=== PATIENT | male | born 1950 | race Caucasian/White ===

== ENCOUNTER 2017-03-15 08:46 | Emergency (ER) | payer BC, OTHER ==
[2017-03-15] MEDS: DIPHENHYDRAMINE 50 MG INJ IV (10:20)
[2017-03-15] MEDS: SOD CHLORIDE 0.9% 1,000 ML IV (10:20)
[2017-03-15] MEDS: PROCHLORPERAZINE 10 MG INJ IV (10:26)
[2017-03-15 10:40] LABS: URINE BLOOD (Dip) POC 1+ (NEGATIVE); URINE GLUCOSE (Dip) POC Negative (NEGATIVE); URINE KETONES (Dip) POC 2+ (NEGATIVE); URINE LEUKOCYTE EST (Dip) POC Negative (NEGATIVE); URINE NITRITE (Dip) POC Negative (NEGATIVE); URINE TOTAL PROTEIN POC 1+ (NEGATIVE)
[2017-03-15] MEDS: ONDANSETRON 4 MG INJ IV ×2 (11:25→11:28)
[2017-03-15] MEDS: morphine 4 MG/ML VIAL IV (11:25)
== END 2017-03-15 12:18 | disposition home or self-care (01) ==
LOC: FTE 08:46
DX: R51 Headache (principal); M79.1 Myalgia; B34.9 Viral infection, unspecified
CPT/HCPCS: 81003; 96374; 96375; 99284-25

== ENCOUNTER 2017-03-25 16:33 | Inpatient (IN) | payer BC ==
[2017-03-25] MEDS: ACETAMINOPHEN 325 MG TAB PO (17:19)
[2017-03-25 17:51] LABS: ADD MAN DIFF? NO
[2017-03-25 17:53] LABS: WHITE BLOOD COUNT 14.3 10^3/ul (4.8-10.8)
[2017-03-25 17:53] LABS: BASOPHILS % 0.2 % (0.0-2.0); EOSINOPHILS % 0.2 % (0.0-7.0); HEMATOCRIT 41.1 % (42.0-52.0); HEMOGLOBIN 14.3 g/dl (14.0-18.0); LYMPHOCYTES # 0.6 10^3/ul (0.8-2.9); LYMPHOCYTES % 4.3 % (15.0-51.0); MEAN CORPUSCULAR HEMOGLOBIN 31.4 pg (29.0-33.0); MEAN CORPUSCULAR HGB CONC 34.8 g/dl (32.0-37.0); MEAN CORPUSCULAR VOLUME 90.3 fl (82.0-101.0); MONOCYTE # 0.5 10^3/ul (0.3-0.9); MONOCYTES % 3.4 % (0.0-11.0); NEUTROPHILS % 91.4 % (39.0-77.0); PLATELET COUNT 248 10^3/UL (140-415); RED BLOOD COUNT 4.55 10^6/ul (4.70-6.10); RED CELL DISTRIBUTION WIDTH 12.9 % (11.5-14.5)
[2017-03-25] MEDS: SODIUM CHLORIDE 0.9% 1L BAG IV* (17:54)
[2017-03-25] MEDS: CEFEPIME 2GM/50 ML (PMX) 50 ML IVPB (17:54)
[2017-03-25] MEDS: ONDANSETRON 4 MG INJ IV (17:54)
[2017-03-25] MEDS: morphine 4 MG/ML VIAL IV (17:54)
[2017-03-25 18:08] LABS: INR 0.96; PROTIME 12.9 Sec (11.9-14.9)
[2017-03-25 18:09] LABS: PARTIAL THROMBOPLASTIN TIME 30.9 Sec (25.0-35.0)
[2017-03-25 18:11] LABS: ALANINE AMINOTRANSFERASE 66 IU/L (13-69); ALBUMIN 4.1 g/dl (3.3-4.9); ALBUMIN/GLOBULIN RATIO 1.24; ALKALINE PHOSPHATASE 155 IU/L (42-121); ANION GAP 20 (8-16); ASPARTATE AMINO TRANSFERASE 26 IU/L (15-46); BILIRUBIN,INDIRECT 0.6 mg/dl (0-1.1); BILIRUBIN,TOTAL 0.6 mg/dl (0.2-1.3); BLOOD UREA NITROGEN 21 mg/dl (7-20); CALCIUM 8.6 mg/dl (8.4-10.2); CARBON DIOXIDE 21 mmol/L (21-31); CHLORIDE 98 mmol/L (97-110); CREATININE 1.32 mg/dl (0.61-1.24); GLUCOSE 110 mg/dl (70-220); POTASSIUM 4.4 mmol/L (3.5-5.1); SODIUM 135 mmol/L (135-144); TOTAL PROTEIN 7.4 g/dl (6.1-8.1)
[2017-03-25 18:17] LABS: LACTIC ACID 2.4 mmol/L (0.5-2.0)
[2017-03-25 18:23] LABS: TROPONIN-I < 0.012 ng/ml (0.00-0.12)
[2017-03-25] MEDS: VANCOMYCIN 1 GM (PMX) 250 ML IVPB (18:29)
[2017-03-25 18:43] LABS: ADD UMIC NO; UR ASCORBIC ACID NEGATIVE (NEGATIVE); UR BILIRUBIN (Dip) NEGATIVE (NEGATIVE); UR BLOOD (Dip) NEGATIVE (NEGATIVE); UR CLARITY CLEAR (CLEAR); UR COLOR YELLOW (YELLOW); UR GLUCOSE (Dip) NEGATIVE (NEGATIVE); UR KETONES (Dip) 1+ mg/dL (NEGATIVE); UR LEUKOCYTE ESTERASE (Dip) NEGATIVE Leu/ul (NEGATIVE); UR NITRITE (Dip) NEGATIVE (NEGATIVE); UR SPECIFIC GRAVITY (Dip) 1.023 (1.003-1.030); UR TOTAL PROTEIN (Dip) NEGATIVE (NEGATIVE); UR UROBILINOGEN (Dip) 1+ mg/dL (NEGATIVE)
[2017-03-25] MEDS ORDERED: ONDANSETRON 4 MG INJ IV ×2 (19:00→19:30)
[2017-03-25] MEDS ORDERED: ACETAMINOPHEN 325 MG TAB PO (19:00)
[2017-03-25] MEDS ORDERED: DIPHENHYDRAMINE 50 MG CAP PO (19:30)
[2017-03-25] MEDS ORDERED: VANCOMYCIN IV PER PHARMACY XX (19:30)
[2017-03-25] MEDS ORDERED: NACL 0.9% 3 ML SYG IV (19:30)
[2017-03-25 20:28] LABS: LACTIC ACID 1.7 mmol/L (0.5-2.0)
[2017-03-25] MEDS: CLOBETASOL 0.05% 15 GM OINT TOP (21:00)
[2017-03-25] MEDS: IBUPROFEN 800 MG TAB PO (21:30)
[2017-03-25] MEDS: ATORVASTATIN 10 MG TAB PO (22:52)
[2017-03-25] MEDS: TAMSULOSIN (SR) 0.4 MG CAP PO (22:52)
[2017-03-25 22:53] LABS: LACTIC ACID 1.6 mmol/L (0.5-2.0)
[2017-03-25] MEDS: ZOLPIDEM 5 MG TAB PO (22:53)
[2017-03-25] MEDS: SOD CHLORIDE 0.9% 1,000 ML IV (22:54)
[2017-03-26] MEDS: morphine 2 MG INJ IV ×2 (05:02→11:28)
[2017-03-26] MEDS: VANCOMYCIN 750 MG in DEXTROSE 5% 150 ML IVPB ×2 (05:44→15:15)
[2017-03-26] MEDS: predniSONE 20 MG TAB PO ×2 (05:44→09:12)
[2017-03-26] MEDS: CLOBETASOL 0.05% 15 GM OINT TOP ×3 (05:45→20:19)
[2017-03-26] MEDS: ACETAMINOPHEN 325 MG TAB PO (05:52)
[2017-03-26 06:14] LABS: ADD MAN DIFF? NO
[2017-03-26 06:23] LABS: BASOPHILS % 0.2 % (0.0-2.0); EOSINOPHILS # 0.1 10^3/ul (0.0-0.5); EOSINOPHILS % 0.5 % (0.0-7.0); HEMATOCRIT 39.5 % (42.0-52.0); HEMOGLOBIN 13.5 g/dl (14.0-18.0); LYMPHOCYTES # 0.8 10^3/ul (0.8-2.9); LYMPHOCYTES % 7.9 % (15.0-51.0); MEAN CORPUSCULAR HEMOGLOBIN 31.5 pg (29.0-33.0); MEAN CORPUSCULAR HGB CONC 34.2 g/dl (32.0-37.0); MEAN CORPUSCULAR VOLUME 92.3 fl (82.0-101.0); MEAN PLATELET VOLUME 9.5 fl (7.4-10.4); MONOCYTE # 0.5 10^3/ul (0.3-0.9); MONOCYTES % 4.9 % (0.0-11.0); NEUTROPHIL # 8.6 10^3/ul (1.6-7.5); PLATELET COUNT 205 10^3/UL (140-415); RED BLOOD COUNT 4.28 10^6/ul (4.70-6.10); RED CELL DISTRIBUTION WIDTH 13.2 % (11.5-14.5)
[2017-03-26 06:51] LABS: CREATINE KINASE 28 IU/L (23-200)
[2017-03-26 07:05] LABS: ANION GAP 17 (8-16); BLOOD UREA NITROGEN 15 mg/dl (7-20); CALCIUM 8.4 mg/dl (8.4-10.2); CARBON DIOXIDE 20 mmol/L (21-31); CHLORIDE 106 mmol/L (97-110); CREATININE 1.34 mg/dl (0.61-1.24); GLUCOSE 102 mg/dl (70-220); MAGNESIUM 2.2 mg/dl (1.7-2.5); PHOSPHORUS 3.7 mg/dl (2.5-4.9); SODIUM 138 mmol/L (135-144)
[2017-03-26 07:27] LABS: CK INDEX 0.9
[2017-03-26 07:29] LABS: CK-MB 0.25 ng/ml (0.0-2.4); TROPONIN-I < 0.012 ng/ml (0.00-0.12)
[2017-03-26 08:31] LABS: C-REACTIVE PROTEIN < 0.5 mg/dl (0.0-0.9)
[2017-03-26 08:32] LABS: ERYTHROCYTE SEDIMENTATION RATE 38 mm/Hr (0-20)
[2017-03-26] MEDS: RANITIDINE 150 MG TAB PO (09:10)
[2017-03-26] MEDS: DIPHENHYDRAMINE 50 MG CAP PO (09:11)
[2017-03-26] MEDS: ASPIRIN (EC) 325 MG TAB PO (09:11)
[2017-03-26] MEDS: ENOXAPARIN 30 MG/0.3 ML SYG SC (09:22)
[2017-03-26 11:11] LABS: CREATINE KINASE 31 IU/L (23-200)
[2017-03-26 11:24] LABS: CK INDEX 0.8
[2017-03-26 11:25] LABS: CK-MB 0.24 ng/ml (0.0-2.4); TROPONIN-I < 0.012 ng/ml (0.00-0.12)
[2017-03-26] MEDS: ACET/BUTAL/CAFF TAB PO (11:28)
[2017-03-26] MEDS: CEFEPIME 2GM/50 ML (PMX) 50 ML IVPB ×2 (11:28→20:19)
[2017-03-26] MEDS: TAMSULOSIN (SR) 0.4 MG CAP PO (20:19)
[2017-03-26] MEDS: ATORVASTATIN 10 MG TAB PO (20:19)
[2017-03-26] MEDS: DOCUSATE SODIUM 100 MG CAP PO (20:33)
[2017-03-26] MEDS: ZOLPIDEM 5 MG TAB PO (22:43)
[2017-03-27] MEDS: morphine 2 MG INJ IV ×2 (02:28→02:36)
[2017-03-27] MEDS: LORAZEPAM 2 MG INJ IV (02:41)
[2017-03-27 04:12] LABS: ADD MAN DIFF? NO
[2017-03-27 04:18] LABS: WHITE BLOOD COUNT 7.1 10^3/ul (4.8-10.8)
[2017-03-27 04:18] LABS: BASOPHILS % 0.1 % (0.0-2.0); HEMATOCRIT 33.8 % (42.0-52.0); HEMOGLOBIN 11.8 g/dl (14.0-18.0); LYMPHOCYTES # 0.7 10^3/ul (0.8-2.9); LYMPHOCYTES % 9.3 % (15.0-51.0); MEAN CORPUSCULAR HEMOGLOBIN 31.6 pg (29.0-33.0); MEAN CORPUSCULAR HGB CONC 34.9 g/dl (32.0-37.0); MEAN CORPUSCULAR VOLUME 90.4 fl (82.0-101.0); MEAN PLATELET VOLUME 9.4 fl (7.4-10.4); MONOCYTE # 0.4 10^3/ul (0.3-0.9); MONOCYTES % 6.2 % (0.0-11.0); NEUTROPHIL # 5.9 10^3/ul (1.6-7.5); PLATELET COUNT 228 10^3/UL (140-415); RED BLOOD COUNT 3.74 10^6/ul (4.70-6.10); RED CELL DISTRIBUTION WIDTH 12.7 % (11.5-14.5)
[2017-03-27 04:36] LABS: ALBUMIN 3.3 g/dl (3.3-4.9); ANION GAP 15 (8-16); BLOOD UREA NITROGEN 15 mg/dl (7-20); CALCIUM 8.7 mg/dl (8.4-10.2); CARBON DIOXIDE 19 mmol/L (21-31); CHLORIDE 106 mmol/L (97-110); CREATININE 1.04 mg/dl (0.61-1.24); GLUCOSE 124 mg/dl (70-220); MAGNESIUM 2.2 mg/dl (1.7-2.5); PHOSPHORUS 2.7 mg/dl (2.5-4.9); POTASSIUM 4.3 mmol/L (3.5-5.1); SODIUM 136 mmol/L (135-144)
[2017-03-27 05:03] LABS: VANCOMYCIN,TROUGH 6.3 ug/ml (10.0-20.0)
[2017-03-27] MEDS: VANCOMYCIN 1 GM 250 ML IVPB (05:33)
[2017-03-27] MEDS: CEFEPIME 2GM/50 ML (PMX) 50 ML IVPB (09:22)
[2017-03-27] MEDS: RANITIDINE 150 MG TAB PO (09:23)
[2017-03-27] MEDS: CLOBETASOL 0.05% 15 GM OINT TOP ×2 (09:23→21:54)
[2017-03-27] MEDS: predniSONE 20 MG TAB PO (09:23)
[2017-03-27] MEDS: ASPIRIN (EC) 325 MG TAB PO (09:23)
[2017-03-27] MEDS: ENOXAPARIN 30 MG/0.3 ML SYG SC (10:04)
[2017-03-27] MEDS: LACTULOSE 30ML CUP PO (12:35)
[2017-03-27] MEDS: MAGNESIUM HYDROXIDE 30ML CUP PO (21:54)
[2017-03-27] MEDS: DOXYCYCLINE 100 MG TAB PO (21:55)
[2017-03-27] MEDS: DOCUSATE SODIUM 100 MG CAP PO (21:55)
[2017-03-27] MEDS: ZOLPIDEM 5 MG TAB PO (21:55)
[2017-03-27] MEDS: TAMSULOSIN (SR) 0.4 MG CAP PO (21:55)
[2017-03-27] MEDS: ATORVASTATIN 10 MG TAB PO (21:55)
[2017-03-27] MEDS: DIPHENHYDRAMINE 50 MG CAP PO (22:06)
[2017-03-28 06:21] LABS: ADD MAN DIFF? NO
[2017-03-28 06:33] LABS: WHITE BLOOD COUNT 7.5 10^3/ul (4.8-10.8)
[2017-03-28 06:33] LABS: BASOPHILS % 0.3 % (0.0-2.0); EOSINOPHILS % 0.3 % (0.0-7.0); HEMOGLOBIN 11.8 g/dl (14.0-18.0); LYMPHOCYTES # 1.8 10^3/ul (0.8-2.9); LYMPHOCYTES % 23.4 % (15.0-51.0); MEAN CORPUSCULAR HEMOGLOBIN 31.6 pg (29.0-33.0); MEAN CORPUSCULAR HGB CONC 34.7 g/dl (32.0-37.0); MEAN CORPUSCULAR VOLUME 90.9 fl (82.0-101.0); MEAN PLATELET VOLUME 9.6 fl (7.4-10.4); MONOCYTE # 0.7 10^3/ul (0.3-0.9); MONOCYTES % 8.7 % (0.0-11.0); NEUTROPHILS % 66.9 % (39.0-77.0); PLATELET COUNT 234 10^3/UL (140-415); RED BLOOD COUNT 3.74 10^6/ul (4.70-6.10); RED CELL DISTRIBUTION WIDTH 12.7 % (11.5-14.5)
[2017-03-28 07:05] LABS: ALBUMIN 3.1 g/dl (3.3-4.9); ANION GAP 12 (8-16); BLOOD UREA NITROGEN 17 mg/dl (7-20); CARBON DIOXIDE 24 mmol/L (21-31); CHLORIDE 105 mmol/L (97-110); CREATININE 1.05 mg/dl (0.61-1.24); GLUCOSE 96 mg/dl (70-220); MAGNESIUM 2.4 mg/dl (1.7-2.5); PHOSPHORUS 3.5 mg/dl (2.5-4.9); POTASSIUM 4.3 mmol/L (3.5-5.1); SODIUM 137 mmol/L (135-144)
[2017-03-28] MEDS: RANITIDINE 150 MG TAB PO (10:26)
[2017-03-28] MEDS: ASPIRIN (EC) 325 MG TAB PO (10:26)
[2017-03-28] MEDS: DOCUSATE SODIUM 100 MG CAP PO (10:26)
[2017-03-28] MEDS: DOXYCYCLINE 100 MG TAB PO (10:27)
[2017-03-28] MEDS: predniSONE 20 MG TAB PO (10:28)
[2017-03-28] MEDS: ENOXAPARIN 30 MG/0.3 ML SYG SC (10:31)
[2017-03-28] MEDS: CLOBETASOL 0.05% 15 GM OINT TOP (10:33)
== END 2017-03-28 13:25 | disposition home or self-care (01) | DRG 872 ==
LOC: E/R 16:33 → MS2 18:41
PROVIDERS: Internal Medicine
DX: A41.9 Sepsis, unspecified organism (principal); N17.9 Acute kidney failure, unspecified; L03.114 Cellulitis of left upper limb; R65.20 Severe sepsis without septic shock; R21 Rash and other nonspecific skin eruption; N40.0 Benign prostatic hyperplasia without lower urinary tract symptoms; E78.5 Hyperlipidemia, unspecified; L30.9 Dermatitis, unspecified; Z88.2 Allergy status to sulfonamides; L27.0 Generalized skin eruption due to drugs and medicaments taken internally; T37.0X5A Adverse effect of sulfonamides, initial encounter; Y92.019 Unspecified place in single-family (private) house as the place of occurrence of the external cause; L73.9 Follicular disorder, unspecified
CPT/HCPCS: 36415; 71045; 80048; 80053; 80069; 80202; 81003; 82550; 82553; 83605; 83735; 84100; 84484; 85025; 85610; 85651; 85730; 86140; 87040; 87086; 87400; 89190; 93005; 96365; 96375; 99291-25

== ENCOUNTER 2017-11-04 21:44 | Emergency (ER) | payer BC ==
[2017-11-04] MEDS: ACETAMINOPHEN 500 MG TAB PO (22:11)
[2017-11-04] MEDS: ONDANSETRON (ODT) 4 MG TAB ODT (22:11)
[2017-11-04] MEDS: ACET/BUTAL/CAFF TAB PO (23:44)
== END 2017-11-04 23:58 | disposition home or self-care (01) ==
LOC: FTE 21:44
DX: G44.209 Tension-type headache, unspecified, not intractable (principal); R11.0 Nausea; Z96.649 Presence of unspecified artificial hip joint; Z79.82 Long term (current) use of aspirin
CPT/HCPCS: 70450; 99284-25